=== PATIENT | female | born 1990 | race African-American/Black ===

== ENCOUNTER 2016-11-11 20:53 | Emergency (ER) | payer BC ==
[~2016-11-11] VITALS: Ht 162.6 cm; Wt 83.7 kg
[~2016-11-11 20:53] MED LIST: DOXYCYCLINE HYC50 MG PO; VICODIN,LORT1 TABLET PO
[2016-11-11 21:35] LABS: MCH 30.5 PG (29.0-34.0); MCHC 33.5 G/DL (30.0-36.0); MCV 91.1 FL (83-99); PLATELET COUNT 252 K/uL (156-360); RBC DIS.WIDTH-CV 12.4 % (11.8-14.6); RBC DIS.WIDTH-SD 41.8 % (39-53); RED BLOOD COUNT 4.06 M/uL (3.80-5.20); WHITE BLOOD COUNT 6.3 K/uL (4.1-10.2)
[2016-11-11 21:44] LABS: CHLORIDE 107 mEq/L (99-109); POTASSIUM 3.7 mEq/L (3.7-5.4); SODIUM 138 mEq/L (136-147)
[2016-11-11 21:46] LABS: GLUCOSE 86 mg/dL (70-99)
[2016-11-11 21:47] LABS: ANION GAP 11 MEQ/L (2-14)
[2016-11-11 21:50] LABS: GFR ESTIMATE (CALCULATED) > 59 mL/min/; UREA NITROGEN (BUN) 16 mg/dL (9-23)
[2016-11-11 21:57] LABS: TROP-I INTERPRETATION NEGATIVE; TROPONIN-I < 0.01 ng/mL (0.0-0.30)
[2016-11-11 22:00] LABS: D-DIMER ELISA < 0.15 mg/L FEU (< 0.57)
[2016-11-11 22:45] VITALS: BP 112/74
== END 2016-11-11 22:46 | disposition home or self-care (01) ==
LOC: EME 20:53
PROVIDERS: Emergency Medicine
DX: R07.9 Chest pain, unspecified (principal); R00.2 Palpitations; R25.8 Other abnormal involuntary movements
CPT/HCPCS: 71020; 80048; 84484; 85027; 85379; 93005; 99281; 99284